=== PATIENT | male | born 1985 | race Caucasian/White ===

== ENCOUNTER 2016-06-29 00:29 | Emergency (ER) | payer BC ==
[2016-06-29] MEDS ORDERED: TDAP ADULT 0.5 ML VIAL (BOOSTRIX) IM ONE (01:04)
--- NOTE | 2016-06-29 02:02 | EDPHY ---
HPI/HX/ROS/PE/MDM Narrative: Chief complaint: right index finger laceration HPI: 30-year-old male sustained a laceration to his right index finger on a knife when he was washing it in the sink this evening. Last tetanus was over 10 years ago. Denies other injuries. ROS: 10 point Review of Systems is negative except as noted in the HPI. Physical exam: General: Awake, alert, no acute distress Right hand: There is a 3 cm laceration over the radial aspect of the proximal index finger phalanx. It goes into the subcutaneous fat only. There is no tendon involvement. He has full flexion extension strength. Sensations intact medially and laterally dorsally and ventrally. Cap refills less than 2 seconds. He has no other injuries. ED Course: Procedure: Laceration repair. Verbal consent was obtained from the patient. The 3 cm laceration on the right index finger was anesthetized in the usual fashion. The wound was irrigated, draped and explored to its base with a gloved finger. There were no deep structures involved. No tendon injury was identified. The wound was repaired with 7, 5-0 Ethilon simple interrupted sutures. The wound repair was uncomplicated. The procedure was performed by myself. - Data Points Medications Given: Discontinued Medications Diphtheria/Tetanus/Acell Pertussis (Boostrix) 0.5 ml IM .ONCE ONE Stop: 06/29/16 01:05 Last Admin: 06/29/16 01:09 Dose: 0.5 ml General Time Seen by Provider: 06/29/16 00:53 Initial Vital Signs: Initial Vital Signs Temperature (C) 36.4 C 06/29/16 00:45 Heart Rate 56 L 06/29/16 00:45 Respiratory Rate 16 06/29/16 00:45 Blood Pressure 116/88 H 06/29/16 00:45 O2 Sat (%) 98 06/29/16 00:45 O2 Delivery Mode Room Air Allergies/Adverse Reactions: No Known Allergies Allergy (Unverified 06/29/16 00:44) Home Medications: Medication Instructions Recorded NK [No Known Home Meds] 06/29/16 Departure - Departure Disposition: Home, Routine, Self-Care Clinical Impression: Laceration Condition: Good Instructions: Care For Your Stitches (ED), Laceration (ED) Additional Instructions: Sutures need to be removed in 7-10 days. Return emergency depart for increasing redness, discharge from the wound, increasing pain, or any other concerns. Referrals: NONE *PRIMARY CARE P,. [Primary Care Provider] - As per Instructions Ruma Mayorga MD [Medical Doctor] - As per Instructions
[2016-06-29 02:12] VITALS: BP 101/59; PULSE 50; RESP 15; TEMP 96.8; O2SAT 93
== END 2016-06-29 02:11 | disposition home or self-care (01) ==
PROC: 0HQFXZZ Repair Right Hand Skin, External Approach (ICD-10-PCS; principal; 2016-06-29)
DX: S61.210A Laceration without foreign body of right index finger without damage to nail, initial encounter (principal); Z23 Encounter for immunization; W26.0XXA Contact with knife, initial encounter; Y93.89 Activity, other specified